=== PATIENT | female | born 1970 | race Caucasian/White ===

== ENCOUNTER → 2018-04-14 11:20 | Outpatient (CLI) | payer BC, SELFPAY ==
--- NOTE | 2018-04-14 11:20 | ETH_PTH ---
PATIENT: ZACHARY SANCHEZ LOC: [facility] U#:[id number] AGE/SX: 55/F ROOM: RE04/14/[address]: Dr. Rashawn Vigil MD : 1970 BED: DIS: SPEC #: [id number] RECD: 04/14/18 15:25 STATUS: LEANNE JACQUELIN #: [id number] LA: 04/14/18 11:[address]: Rashawn Vigil DEPT: SURGICAL PATHOLOGY RECD BY: Vinicio Palafox ENTERED: 04/20/18 04:32 SP TYPE: ETH TISS OTHR DR: ALISSA Tissues: A - Ethmoid sinus, NOS B - Ethmoid sinus, NOS Procedures: Decalcification bone/plaque Surgery Specimen Level IV HEADER OPERATION: Functional endoscopic sinus surgery PRE-OP DIAGNOSIS: Chronic sinusitis TISSUE SUBMITTED: A ? Right sinus contents, B ? Left sinus contents MICROSCOPIC DIAGNOSIS A. Right sinus contents: Fragments of respiratory mucosa including turbinates with chronic inflammation and bone. B. Left sinus contents: Fragments of respiratory mucosa including turbinates with chronic inflammation and bone. JACQUELYN:elaina 04/20/18 MICROSCOPIC DESCRIPTION Slides are reviewed. GROSS DESCRIPTION A - Received in fixative is one container labeled with the patient's name and designated right sinus contents. The specimen consists of multiple fragments of pink hemorrhagic soft tissue including turbinates and bone that in aggregate measure 5 x 3 x 0.3 cm. The entire specimen is submitted in two cassettes after decalcification. B - Received in fixative is one container labeled with the patient's name and designated left sinus contents. The specimen consists of multiple fragments of pink hemorrhagic soft tissue including turbinates and bone that in aggregate measure 5 x 3 x 0.3 cm. The entire specimen is submitted in two cassettes after decalcification. / JACQUELYN:elaina 04/14/18 TC:3 CPT: 26635 x2, 10371 x2
--- NOTE | 2018-04-14 11:20 | DT_ITS ---
This patient was seen during an EMR downtime April 13, 2018 - April 20, 2018. This patient may have a combination of paper and electronic documentation or all paper documentation. All documentation is viewable within the e-chart portion of [employer] for each patient visit.
== END ==
PROVIDERS: Visit Provider Otolaryngology
DX: J32.9 Chronic sinusitis, unspecified (principal)
CPT/HCPCS: 88305; 88311

== ENCOUNTER → 2024-09-29 | Outpatient (CLI) | payer BC, SELFPAY ==
--- NOTE | 2024-09-29 16:38 | MRI_ITS ---
EXAM: MR LUMBAR SPINE WITHOUT INTRAVENOUS CONTRAST CLINICAL INDICATION: low back pain TECHNIQUE: Multiplanar and multisequence MR images of the lumbar spine without intravenous contrast. COMPARISON: No relevant prior studies available. FINDINGS: VERTEBRAE: Unremarkable. Vertebral body heights are preserved. Normal vertebral bodies and posterior elements. Normal alignment. No spondylolisthesis. There is preservation of the normal lumbar lordosis. SPINAL CORD: Unremarkable. Normal position and signal intensity of the conus medullaris at T12-L1. SOFT TISSUES: Unremarkable. DISCS/SPINAL CANAL/NEURAL FORAMINA: L1-L2: Unremarkable. Normal disc height and morphology. Normal spinal canal and lateral recesses. Normal neuroforamina. L2-L3: Unremarkable. Normal disc height and morphology. Normal spinal canal and lateral recesses. Normal neuroforamina. L3-L4: Slight decreased disc height, mild decreased T2 signal intensity, mild annular disc bulge. Slight flattening the ventral thecal sac. No bronson spinal stenosis. L4-L5: Mild decreased disc height. Decreased T2 signal intensity. Minimal high signal in the opposing endplates, consistent with Modic type changes. Mild annular disc bulge. Hypertrophic change of the left facet joint with moderate-marked stenosis of the proximal left neural foramen. Minimal narrowing of the ventral thecal sac with slightly effaced lateral recesses. Midline AP diameter of the canal roughly 1 cm. L5-S1: Mild Modic type endplate changes, fairly well-maintained disc height, mild decreased T2 signal intensity. Moderate stenosis of the proximal right neural foramen. Mild eccentric disc bulge-protrusion on the right, slightly effacing the right lateral recess and S1 nerve root. MRI/Spine Lumbar (Routine) IMPRESSION: Multilevel degenerative change. Including prominent left L4-5 neural foraminal narrowing and moderate right L5-S1 neural foraminal stenosis. Mildly effaced right lateral recess and S1 nerve root at L5-S1. Electronically Signed: Sofie Montgomery MD at 2:41 EST ,
== END | disposition home or self-care (01) ==
LOC: MRI 16:37
PROVIDERS: PCP Family Medicine; Referring Provider Student in an Organized Health Care Education/Training Program; Visit Provider Student in an Organized Health Care Education/Training Program
DX: M43.16 Spondylolisthesis, lumbar region (principal); M54.16 Radiculopathy, lumbar region
CPT/HCPCS: 72148

== ENCOUNTER → 2024-10-28 | Outpatient (CLI) | payer BC, SELFPAY ==
--- NOTE | 2024-10-28 10:00 | VDLE_ITS ---
Reason For Study: Right thigh pain RIGHT LEFT GSV is normal. CFV is compressible, spontaneous, phasic, CFV is compressible, spontaneous, phasic, competent, and demonstrates normal competent and demonstrates normal augmentation. augmentation. FV is compressible, spontaneous, phasic, competent and demonstrates normal augmentation. POP V is compressible, spontaneous, phasic, competent and demonstrates normal augmentation. T/P Trunk is compressible. PTV is compressible. RT PerV is compressible. Procedure This is a venous duplex using B-mode, color flow and spectral Doppler. Exam performed in department. A preliminary report was called and/or faxed to Dr. Negron. VL/Venous Duplex US, Unilateral Interpretation Summary Deep veins of the right lower extremity are patent and compressible segmentally . There is no evidence of right lower extremity deep vein thrombosis. Valvular competence keri ears intact within the proximal deep venous system on the right . The right great saphenous vein a ppears patent and compressible segmentally. The left common femoral vein is patent and compressib le . Ordering Physician: Lolly Negron Referring Physician: Roosevelt Bella Performed By: Fátima Guerra RVT
== END | disposition home or self-care (01) ==
LOC: CVS 09:59
PROVIDERS: PCP Family Medicine; Referring Provider Family Medicine; Visit Provider Family Medicine
DX: M79.651 Pain in right thigh (principal)
CPT/HCPCS: 93971